=== PATIENT | female | born 1980 | race Caucasian/White ===

== ENCOUNTER → 2017-08-26 | Outpatient (REF) | payer OTHER | LOC: M LAB REF 12:59 | PROVIDERS: ATTEND Internal Medicine Medical Oncology | DX: D68.69 Other thrombophilia (principal) ==

== ENCOUNTER → 2017-08-26 | Outpatient (CLI) | payer OTHER | LOC: M RAD 12:24 | DX: I87.2 Venous insufficiency (chronic) (peripheral) (principal); D68.69 Other thrombophilia ==

== ENCOUNTER → 2018-01-04 | Outpatient (REF) | payer OTHER ==
[2018-01-04 18:04] LABS: FERRITIN 17 NG/ML (8-252); IRON (FE) 304 UG/DL (50-170); PERCENT SATURATION 65.8 % (13.2-45.0); TOTAL IRON BINDING CAPACITY 462 UG/DL (250-450)
== END ==
LOC: M LAB REF 16:38
DX: D68.59 Other primary thrombophilia (principal)